=== PATIENT | female | born 1950 | race Caucasian/White ===

== ENCOUNTER 2020-09-09 10:17 | Outpatient (REF) | payer MEDICARE, OTHER, SELFPAY ==
[2020-09-09 13:54] LABS: MANUAL DIFF FLAG NO
[2020-09-09 14:18] LABS: Basophils Percent Auto 0.4 % (0-2); Eosinophils Absolute Auto 0.1 X10*3/uL (0.0-0.4); Hematocrit 43.3 % (37-47); Hemoglobin 14.1 g/dl (12.0-16.0); Imm Gran Abs Auto 0.01 X10*3/uL (0.00-0.03); Imm Gran Pct Auto 0.1 % (0.0-0.4); Lymphocytes Absolute Auto 2.5 X10*3/uL (1.2-4.9); Lymphocytes Percent Auto 32.2 % (20-40); Mean Corpuscular HGB Conc 32.6 g/dl (31.0-35.0); Mean Corpuscular Hemoglobin 30.7 pg (27.0-33.0); Mean Corpuscular Volume 94.1 fL (80-98); Mean Platelet Volume 12.1 fL (9.4-12.3); Monocytes Absolute Auto 0.5 X10*3/uL (0.1-1.2); Neutrophils Absolute Auto 4.7 X10*3/uL (2.0-8.3); Neutrophils Percent Auto 60.3 % (45-73); Platelet Count 211 X10*3/uL (160-400); Red Cell Distribution Width 13.2 % (11.0-16.0); White Blood Count 7.8 X10*3/uL (4.8-10.8)
[2020-09-09 14:34] LABS: Anion Gap 14 (12-20); Blood Urea Nitrogen 15 mg/dL (9-16); Calcium 8.6 mg/dL (8.4-10.2); Carbon Dioxide 24 mmol/L (22-29); Chloride 108 mmol/L (96-108); Estimated Glomerular Filt Rate > 60; Glucose Random 82 mg/dL (60-115); Potassium 4.8 mmol/l (3.3-5.1); Sodium 141 mmol/L (135-145)
[2020-09-09 15:00] LABS: Free T4 (Free Thyroxine) 1.17 ng/dL (0.71-1.85); Thyroid Stimulating Hormone 2.64 uIU/mL (0.32-4.0); Vitamin D 25-OH Total 21.3 ng/mL (>30)
== END 2020-09-09 10:18 | disposition home or self-care (01) ==
LOC: HO.10HDL 10:17
PROVIDERS: Visit Provider Internal Medicine
DX: E03.9 Hypothyroidism, unspecified (principal); E55.9 Vitamin D deficiency, unspecified; K57.90 Diverticulosis of intestine, part unspecified, without perforation or abscess without bleeding
CPT/HCPCS: 36415; 80048; 82306; 84439; 84443; 85025

== ENCOUNTER 2021-01-06 10:26 | Outpatient (REF) | payer MEDICARE, OTHER, SELFPAY ==
[2021-01-06 11:44] LABS: MANUAL DIFF FLAG NO
[2021-01-06 11:50] LABS: Basophils Percent Auto 0.4 % (0-2); Eosinophils Absolute Auto 0.1 X10*3/uL (0.0-0.4); Eosinophils Percent Auto 1.5 % (0-4); Hematocrit 43.4 % (37-47); Hemoglobin 14.3 g/dl (12.0-16.0); Imm Gran Abs Auto 0.03 X10*3/uL (0.00-0.03); Imm Gran Pct Auto 0.4 % (0.0-0.4); Lymphocytes Percent Auto 37.6 % (20-40); Mean Corpuscular HGB Conc 32.9 g/dl (31.0-35.0); Mean Corpuscular Hemoglobin 30.9 pg (27.0-33.0); Mean Corpuscular Volume 93.7 fL (80-98); Mean Platelet Volume 11.8 fL (9.4-12.3); Monocytes Absolute Auto 0.5 X10*3/uL (0.1-1.2); Monocytes Percent Auto 6.2 % (2-11); Neutrophils Absolute Auto 4.3 X10*3/uL (2.0-8.3); Neutrophils Percent Auto 53.9 % (45-73); Platelet Count 243 X10*3/uL (160-400); Red Blood Count 4.63 X10*6/uL (4.20-5.50); Red Cell Distribution Width 13.4 % (11.0-16.0); White Blood Count 7.9 X10*3/uL (4.8-10.8)
[2021-01-06 12:13] LABS: Anion Gap 14 (12-20); Blood Urea Nitrogen 16 mg/dL (9-16); Calcium 9.1 mg/dL (8.4-10.2); Carbon Dioxide 24 mmol/L (22-29); Chloride 107 mmol/L (96-108); Estimated Glomerular Filt Rate > 60; Glucose Random 91 mg/dL (60-115); Potassium 4.9 mmol/L (3.3-5.1); Sodium 140 mmol/L (135-145)
[2021-01-06 12:38] LABS: Thyroid Stimulating Hormone 2.76 uIU/mL (0.32-4.0); Vitamin D 25-OH Total 21.1 ng/mL (>30)
== END 2021-01-06 10:27 | disposition home or self-care (01) ==
LOC: HO.LAB 10:26
PROVIDERS: PCP Internal Medicine; Visit Provider Internal Medicine
DX: E03.9 Hypothyroidism, unspecified (principal); E55.9 Vitamin D deficiency, unspecified
CPT/HCPCS: 36415; 80048; 82306; 84439; 84443; 85025

== ENCOUNTER 2021-02-07 09:43 | Outpatient (REF) | payer MEDICARE, OTHER, SELFPAY ==
[2021-02-07 10:52] LABS: MANUAL DIFF FLAG NO
[2021-02-07 11:11] LABS: Basophils Percent Auto 0.4 % (0-2); Eosinophils Absolute Auto 0.1 X10*3/uL (0.0-0.4); Eosinophils Percent Auto 1.2 % (0-4); Hematocrit 42.6 % (37-47); Hemoglobin 13.7 g/dl (12.0-16.0); Imm Gran Abs Auto 0.02 X10*3/uL (0.00-0.03); Imm Gran Pct Auto 0.2 % (0.0-0.4); Lymphocytes Absolute Auto 2.1 X10*3/uL (1.2-4.9); Lymphocytes Percent Auto 25.1 % (20-40); Mean Corpuscular HGB Conc 32.2 g/dl (31.0-35.0); Mean Corpuscular Hemoglobin 30.6 pg (27.0-33.0); Mean Corpuscular Volume 95.1 fL (80-98); Mean Platelet Volume 12.1 fL (9.4-12.3); Monocytes Absolute Auto 0.5 X10*3/uL (0.1-1.2); Monocytes Percent Auto 5.9 % (2-11); Neutrophils Absolute Auto 5.6 X10*3/uL (2.0-8.3); Neutrophils Percent Auto 67.2 % (45-73); Platelet Count 235 X10*3/uL (160-400); Red Blood Count 4.48 X10*6/uL (4.20-5.50); Red Cell Distribution Width 13.5 % (11.0-16.0); White Blood Count 8.3 X10*3/uL (4.8-10.8)
[2021-02-07 11:26] LABS: Alanine Aminotransferase 8 U/L (0-31); Albumin Level 4.1 g/dL (3.5-5.0); Alkaline Phosphatase 78 U/L (39-117); Anion Gap 10 (12-20); Aspartate Amino Transferase 14 U/L (5-31); Bilirubin Total 0.4 mg/dL (0.0-1.0); Blood Urea Nitrogen 19 mg/dL (9-16); C Reactive Protein 0.51 mg/dL (< or = 0.50); Calcium 9.2 mg/dL (8.4-10.2); Carbon Dioxide 26 mmol/L (22-29); Chloride 110 mmol/L (96-108); Estimated Glomerular Filt Rate > 60; Glucose Random 90 mg/dL (60-115); Sodium 141 mmol/L (135-145); Total Protein 6.7 g/dL (6.5-8.0)
== END 2021-02-07 09:44 | disposition home or self-care (01) ==
LOC: HO.LAB 09:43
PROVIDERS: PCP Internal Medicine; Visit Provider Internal Medicine
DX: I10 Essential (primary) hypertension (principal); T88.1XXA Other complications following immunization, not elsewhere classified, initial encounter
CPT/HCPCS: 36415; 80053; 85025; 86140

== ENCOUNTER 2021-03-07 08:42 | Outpatient (REF) | payer MEDICARE, OTHER, SELFPAY ==
--- NOTE | ~2021-03-07 | XR_ITS ---
EXAMINATION: XR PELVIS CLINICAL INFORMATION: Pain. COMPARISON: None TECHNIQUE: AP view of the pelvis. FINDINGS: There is normal symmetry of bilateral hip joints and SI joints. No gross bony abnormality involving the pelvic bones or the sacrum. No acute fracture, dislocation or lytic process seen. The soft tissues are normal. XR/XR pelvis 1-2V IMPRESSION: Unremarkable AP pelvis exam.
== END 2021-03-07 08:43 | disposition home or self-care (01) ==
LOC: HO.HOSX 08:42
PROVIDERS: Visit Provider Orthopaedic Surgery
DX: M54.16 Radiculopathy, lumbar region (principal)
CPT/HCPCS: 72170; 99202

== ENCOUNTER 2021-03-10 15:29 | Outpatient (REF) | payer MEDICARE, OTHER, SELFPAY ==
[2021-03-11 03:41] LABS: SARS COV2 IgG Negative (Negative)
== END 2021-03-10 15:30 | disposition home or self-care (01) ==
LOC: HO.LAB 15:29
PROVIDERS: PCP Internal Medicine; Visit Provider Otolaryngology
DX: Z01.84 Encounter for antibody response examination (principal)
CPT/HCPCS: 36415; 86769

== ENCOUNTER 2021-08-12 15:29 | Outpatient (REF) | payer MEDICARE, OTHER, SELFPAY ==
[2021-08-12 16:16] LABS: Influenza A PCR NEGATIVE (Negative); Influenza B PCR NEGATIVE (Negative); Resp Syncy Virus RNA Qual PCR NEGATIVE (Negative); SARS COV2 PCR INHOUSE NEGATIVE (Negative)
== END 2021-08-12 15:30 | disposition home or self-care (01) ==
LOC: HO.LNP 15:29
PROVIDERS: Visit Provider Physician Assistant Medical
DX: Z20.822 Contact with and (suspected) exposure to COVID-19 (principal); J06.9 Acute upper respiratory infection, unspecified
CPT/HCPCS: 0241U

== ENCOUNTER 2022-04-11 12:15 | Outpatient (REF) | payer MEDICARE, OTHER, SELFPAY ==
[2022-04-11 13:46] LABS: MANUAL DIFF FLAG NO
[2022-04-11 13:49] LABS: Basophils Percent Auto 0.5 % (0-2); Eosinophils Absolute Auto 0.2 X10*3/uL (0.0-0.4); Hematocrit 44.5 % (37.0-47.0); Hemoglobin 14.8 g/dl (12.0-16.0); Imm Gran Abs Auto 0.01 X10*3/uL (0.00-0.03); Imm Gran Pct Auto 0.1 % (0.0-0.4); Lymphocytes Absolute Auto 2.7 X10*3/uL (1.2-4.9); Lymphocytes Percent Auto 35.4 % (20-40); Mean Corpuscular HGB Conc 33.3 g/dl (31.0-35.0); Mean Corpuscular Hemoglobin 30.8 pg (27.0-33.0); Mean Corpuscular Volume 92.7 fL (80.0-98.0); Mean Platelet Volume 11.8 fL (9.4-12.3); Monocytes Absolute Auto 0.5 X10*3/uL (0.1-1.2); Monocytes Percent Auto 6.3 % (2-11); Neutrophils Absolute Auto 4.2 x10*3/uL (2.0-8.3); Neutrophils Percent Auto 55.7 % (45-73); Platelet Count 218 X10*3/uL (160-400); Red Cell Distribution Width 13.4 % (11.0-16.0); White Blood Count 7.5 X10*3/uL (4.8-10.8)
[2022-04-11 14:24] LABS: Alanine Aminotransferase 8 U/L (0-31); Albumin Level 4.2 g/dL (3.5-5.0); Alkaline Phosphatase 86 U/L (39-117); Anion Gap 15 (12-20); Aspartate Amino Transferase 15 U/L (5-31); Bilirubin Total 0.3 mg/dL (0.0-1.0); Blood Urea Nitrogen 19 mg/dL (9-16); Calcium 9.5 mg/dL (8.4-10.2); Carbon Dioxide 25 mmol/L (22-29); Chloride 107 mmol/L (96-108); Cholesterol 262 mg/dL; Estimated Glomerular Filt Rate 60; Glucose Random 88 mg/dL (60-115); Potassium 4.9 mmol/L (3.3-5.1); Sodium 142 mmol/L (135-145); Total Protein 6.9 g/dL (6.5-8.0)
[2022-04-11 14:46] LABS: Thyroid Stimulating Hormone 3.59 uIU/mL (0.32-4.0); Vitamin D 25-OH Total 19.7 ng/mL (>30)
== END 2022-04-11 12:16 | disposition home or self-care (01) ==
LOC: HO.10HDL 12:15
PROVIDERS: Visit Provider Internal Medicine
DX: E55.9 Vitamin D deficiency, unspecified (principal); J44.9 Chronic obstructive pulmonary disease, unspecified
CPT/HCPCS: 36415; 80053; 82306; 82465; 84439; 84443; 85025

== ENCOUNTER 2022-10-21 07:03 | Outpatient (REF) | payer MEDICARE, OTHER, SELFPAY ==
[2022-10-21 08:56] LABS: Alanine Aminotransferase 10 U/L (0-31); Albumin Level 3.9 g/dL (3.5-5.0); Alkaline Phosphatase 91 U/L (39-117); Anion Gap 13 (12-20); Aspartate Amino Transferase 15 U/L (5-31); Bilirubin Total 0.4 mg/dL (0.0-1.0); Blood Urea Nitrogen 14 mg/dL (9-16); Calcium 8.7 mg/dL (8.4-10.2); Carbon Dioxide 26 mmol/L (22-29); Chloride 106 mmol/L (96-108); Cholesterol 241 mg/dL; Estimated Glomerular Filt Rate > 60; Glucose Random 89 mg/dL (60-115); HDL Cholesterol 47 mg/dL; LDL Cholesterol Calculated 162 mg/dl; Potassium 4.6 mmol/L (3.3-5.1); Sodium 140 mmol/L (135-145); Total Protein 6.5 g/dL (6.5-8.0); Triglycerides 163 mg/dL
[2022-10-21 09:16] LABS: Thyroid Stimulating Hormone 4.51 uIU/mL (0.32-4.0)
[2022-10-21 09:43] LABS: T4 Thyroxine 8.8 ug/dL (4.5-12.0); Vitamin D 25-OH Total 22.4 ng/mL (>30)
== END 2022-10-21 07:04 | disposition home or self-care (01) ==
LOC: HO.LAB 07:03
PROVIDERS: PCP Internal Medicine; Visit Provider Internal Medicine
DX: E03.9 Hypothyroidism, unspecified (principal); E78.00 Pure hypercholesterolemia, unspecified; E55.9 Vitamin D deficiency, unspecified
CPT/HCPCS: 36415; 80053; 80061; 82306; 84436; 84443

== ENCOUNTER 2023-04-05 15:47 | Outpatient (AMB) | payer MEDICARE, OTHER, SELFPAY ==
--- NOTE | 2023-04-05 15:57 | MHC.OFFVIS ---
Intake Vital Signs 04/05/23 15:59 Weight 226 lb 13.69 oz BP 130/82 Blood Pressure Location Lt brachial Position Sitting Pulse 49 L Pulse Source Pulse Oximeter Intake Visit Reasons: Hypothyroidism Intake Note: New patient present today for Hypothyroidism office visit. Utility Agent Required: No Accompanied by: Self / Same As Patient Allergies Penicillins [PENICILLINS] Allergy (Severe, Verified 04/05/23 16:00) RASH Iodinated Contrast Media [IV Dye, Iodine Containing] Allergy (Intermediate, Verified 04/05/23 16:00) FLUSHING morphine [MORPHINE] Allergy (Intermediate, Verified 04/05/23 16:00) SHAKING, shaking, aggitation penicillin V Allergy (Unknown, Verified 04/05/23 16:00) rash Medication List - Last Reconciled 04/05/23 by Barrie Menchaca MD levothyroxine (Synthroid) 88 mcg PO DAILY HPI HPI Comments History of Present Illness Details This 72-year-old white female previously followed by myself for management of hypothyroidism. Patient is currently on Synthroid 88 mcg .M-F and 100 ug Sun and Sunday. She has been on this dose for yrs. Has difficulty losing wt. [facility] Medical History (Updated 04/05/23 @ 16:08 by Barrie Menchaca MD) Hypothyroid Surgical History (Updated 04/05/23 @ 16:07 by Era Canales) History of hysterectomy Social History Current occupational status: retired Current occupation: rt hand/ Physical Exam Vital Signs: Last Vital Signs Pulse 49 L 04/05/23 15:59 BP 130/82 04/05/23 15:59 Const Other: Thyroid gland is decreased in size weighs by 5 g. There are no thyroid nodules palpated Assessment & Plan Assessment & Plan (1) Hypothyroid: Code(s): E03.9 - Hypothyroidism, unspecified Plan: This 72-year-old white female with a history of hypothyroidism currently be replaced on stop 88 mcg Synthroid. She appears to be clinically euthyroid. Plan is to check a TSH and free T4 and adjust levothyroxine accordingly Orders: Orders Free T4 (Free Thyroxine) Today E03.9 - Hypothyroidism, unspecified Thyroid Stimulating Hormone Today E03.9 - Hypothyroidism, unspecified Coding Level of Care Code Est Pt Level 3 (57829) Diagnoses Hypothyroid E03.9
[2023-04-05 15:59] VITALS: BP 130/82; PULSE 49
== END 2023-04-05 16:30 | disposition home or self-care (01) ==
PROVIDERS: PCP Internal Medicine; Visit Provider Internal Medicine Endocrinology, Diabetes & Metabolism
DX: E03.9 Hypothyroidism, unspecified (principal)
CPT/HCPCS: 99213

== ENCOUNTER → 2023-04-05 15:47 | Outpatient (BNVA) | payer MEDICARE, OTHER, SELFPAY | PROVIDERS: PCP Internal Medicine; Visit Provider Internal Medicine Endocrinology, Diabetes & Metabolism | DX: E03.9 Hypothyroidism, unspecified (principal) | CPT/HCPCS: 99212 ==

== ENCOUNTER 2023-04-13 07:51 | Outpatient (REF) | payer MEDICARE, OTHER, SELFPAY ==
[2023-04-13 10:49] LABS: Free T4 (Free Thyroxine) 1.07 ng/dL (0.71-1.85); Thyroid Stimulating Hormone 5.56 uIU/mL (0.32-4.0)
== END 2023-04-13 07:52 | disposition home or self-care (01) ==
LOC: HO.LAB 07:51
PROVIDERS: PCP Internal Medicine; Visit Provider Internal Medicine Endocrinology, Diabetes & Metabolism
DX: E03.9 Hypothyroidism, unspecified (principal)
CPT/HCPCS: 36415; 84439; 84443

== ENCOUNTER 2023-10-01 14:03 | Outpatient (REF) | payer MEDICARE, OTHER, SELFPAY ==
[2023-10-01 15:46] LABS: Free T4 (Free Thyroxine) 1.04 ng/dL (0.71-1.85); Thyroid Stimulating Hormone 3.06 uIU/mL (0.32-4.0)
== END 2023-10-01 14:04 | disposition home or self-care (01) ==
LOC: HO.LAB 14:03
PROVIDERS: PCP Internal Medicine; Visit Provider Internal Medicine Endocrinology, Diabetes & Metabolism
DX: E03.9 Hypothyroidism, unspecified (principal)
CPT/HCPCS: 36415; 84439; 84443

== ENCOUNTER 2023-10-04 14:50 | Outpatient (AMB) | payer MEDICARE, OTHER, SELFPAY ==
--- NOTE | 2023-10-04 15:03 | MHC.OFFVIS ---
Intake Vital Signs 10/04/23 15:06 Height 5 ft 6 in Weight 226 lb 3.108 oz BMI 36.5 BP 102/80 Blood Pressure Location Lt brachial Position Sitting Pulse 72 Pulse Source Pulse Oximeter Intake Visit Reasons: f/u hypothyroidism postablative-confirmed Intake Note: Patient presents today for Hypothyroidism Postablative follow up. Sugar Laboratory Assistant Required: No Accompanied by: Self / Same As Patient Allergies Penicillins [PENICILLINS] Allergy (Severe, Verified 10/04/23 15:10) RASH Iodinated Contrast Media [IV Dye, Iodine Containing] Allergy (Intermediate, Verified 10/04/23 15:10) FLUSHING morphine [MORPHINE] Allergy (Intermediate, Verified 10/04/23 15:10) SHAKING, shaking, aggitation penicillin V Allergy (Unknown, Verified 10/04/23 15:10) rash Medication List - Last Reconciled 10/04/23 by Barrie Menchaca MD levothyroxine 100 mcg PO DAILY Synthroid (levothyroxine) 88 mcg PO DAILY NS HPI HPI Comments History of Present Illness Details This 73-year-old white female previously followed by myself for management of hypothyroidism. Patient is currently on Synthroid 88 mcg .- and 100 ug Sun and Sunday. She has been on this dose for yrs. Has difficulty losing wt. [facility] Medical History (Updated 04/05/23 @ 16:08 by Barrie Menchaca MD) Hypothyroid Surgical History History of hysterectomy Social History Current occupational status: retired Current occupation: rt hand/ Physical Exam Vital Signs: Last Vital Signs Pulse 72 10/04/23 15:06 BP 102/80 10/04/23 15:06 BMI result Body Mass Index 36.5 Const Other: Thyroid gland is decreased in size weighs by 5 g. There are no thyroid nodules palpated Assessment & Plan Assessment & Plan (1) Hypothyroid: Code(s): E03.9 - Hypothyroidism, unspecified Plan: This 72-year-old white female with a history of hypothyroidism currently be replaced on 88 mcg Synthroid Sunday to Sunday and 100 mcg on Sunday and Sunday. She appears to be clinically and biochemically euthyroid. Plan is to do the current management Coding Level of Care Code Est Pt Level 3 (35823) Diagnoses Hypothyroid E03.9
[2023-10-04 15:06] VITALS: BP 102/80; PULSE 72; BMI 36.5
== END 2023-10-04 15:42 | disposition home or self-care (01) ==
PROVIDERS: PCP Internal Medicine; Visit Provider Internal Medicine Endocrinology, Diabetes & Metabolism
DX: E03.9 Hypothyroidism, unspecified (principal)
CPT/HCPCS: 99213

== ENCOUNTER → 2023-10-04 14:50 | Outpatient (BNVA) | payer MEDICARE, OTHER, SELFPAY | PROVIDERS: PCP Internal Medicine; Visit Provider Internal Medicine Endocrinology, Diabetes & Metabolism | DX: E03.9 Hypothyroidism, unspecified (principal) | CPT/HCPCS: 99212 ==

== ENCOUNTER 2023-11-28 09:12 | Outpatient (REF) | payer MEDICARE, OTHER, SELFPAY ==
[2023-11-28 09:31] LABS: MANUAL DIFF FLAG NO
[2023-11-28 10:16] LABS: Basophils Percent Auto 0.6 % (0-2); Eosinophils Absolute Auto 0.1 X10*3/uL (0.0-0.4); Eosinophils Percent Auto 2.1 % (0-4); Hematocrit 38.4 % (37.0-47.0); Hemoglobin 12.1 g/dl (12.0-16.0); Imm Gran Abs Auto 0.02 X10*3/uL (0.00-0.03); Imm Gran Pct Auto 0.3 % (0.0-0.4); Lymphocytes Absolute Auto 2.5 X10*3/uL (1.2-4.9); Lymphocytes Percent Auto 37.4 % (20-40); Mean Corpuscular HGB Conc 31.5 g/dl (31.0-35.0); Mean Corpuscular Volume 85.7 fL (80.0-98.0); Mean Platelet Volume 11.5 fL (9.4-12.3); Monocytes Absolute Auto 0.5 X10*3/uL (0.1-1.2); Neutrophils Absolute Auto 3.5 x10*3/uL (2.0-8.3); Neutrophils Percent Auto 52.6 % (45-73); Platelet Count 290 X10*3/uL (160-400); Red Blood Count 4.48 X10*6/uL (4.20-5.50); Red Cell Distribution Width 15.7 % (11.0-16.0); White Blood Count 6.6 X10*3/uL (4.8-10.8)
[2023-11-28 11:35] LABS: Alanine Aminotransferase 9 U/L (0-31); Albumin Level 3.9 g/dL (3.5-5.0); Alkaline Phosphatase 94 U/L (39-117); Anion Gap 11 (12-20); Aspartate Amino Transferase 15 U/L (5-31); Bilirubin Total 0.3 mg/dL (0.0-1.0); Blood Urea Nitrogen 14 mg/dL (9-16); Calcium 9.2 mg/dL (8.4-10.2); Carbon Dioxide 26 mmol/L (22-29); Chloride 108 mmol/L (96-108); Cholesterol 233 mg/dL (<200); Estimated Glomerular Filt Rate > 60; Glucose Fasting 99 mg/dL (60-99); HDL Cholesterol 50 mg/dL (>40); LDL Cholesterol Calculated 161 mg/dL (<100); Potassium 4.5 mmol/L (3.3-5.1); Sodium 140 mmol/L (135-145); Total Protein 7.2 g/dL (6.5-8.0); Triglycerides 112 mg/dL (<150)
[2023-11-28 11:36] LABS: Vitamin D 25-OH Total 26.8 ng/mL (>30)
== END 2023-11-28 09:13 | disposition home or self-care (01) ==
LOC: HO.LAB 09:12
PROVIDERS: PCP Internal Medicine; Visit Provider Internal Medicine
DX: J44.9 Chronic obstructive pulmonary disease, unspecified (principal); E78.00 Pure hypercholesterolemia, unspecified; E55.9 Vitamin D deficiency, unspecified
CPT/HCPCS: 36415; 80053; 80061; 82306; 85025

== ENCOUNTER 2024-05-31 08:22 | Outpatient (REF) | payer MEDICARE, OTHER, SELFPAY ==
[2024-05-31 08:42] LABS: MANUAL DIFF FLAG NO
[2024-05-31 09:14] LABS: Basophils Percent Auto 0.5 % (0-2); Eosinophils Absolute Auto 0.1 X10*3/uL (0.0-0.4); Eosinophils Percent Auto 2.1 % (0-4); Hematocrit 40.4 % (37.0-47.0); Hemoglobin 12.7 g/dl (12.0-16.0); Imm Gran Abs Auto 0.02 X10*3/uL (0.00-0.03); Imm Gran Pct Auto 0.3 % (0.0-0.4); Lymphocytes Absolute Auto 1.8 X10*3/uL (1.2-4.9); Lymphocytes Percent Auto 26.6 % (20-40); Mean Corpuscular HGB Conc 31.4 g/dl (31.0-35.0); Mean Corpuscular Hemoglobin 26.7 pg (27.0-33.0); Mean Corpuscular Volume 85.1 fL (80.0-98.0); Mean Platelet Volume 11.1 fL (9.4-12.3); Monocytes Absolute Auto 0.5 X10*3/uL (0.1-1.2); Monocytes Percent Auto 7.5 % (2-11); Neutrophils Absolute Auto 4.2 x10*3/uL (2.0-8.3); Platelet Count 299 X10*3/uL (160-400); Red Blood Count 4.75 X10*6/uL (4.20-5.50); Red Cell Distribution Width 16.7 % (11.0-16.0); White Blood Count 6.7 X10*3/uL (4.8-10.8)
[2024-05-31 10:05] LABS: Alanine Aminotransferase 9 U/L (0-31); Alkaline Phosphatase 92 U/L (39-117); Anion Gap 13 (12-20); Aspartate Amino Transferase 14 U/L (5-31); Bilirubin Total 0.3 mg/dL (0.0-1.0); Blood Urea Nitrogen 20 mg/dL (9-16); Carbon Dioxide 26 mmol/L (22-29); Chloride 106 mmol/L (96-108); Cholesterol 223 mg/dL (<200); Estimated Glomerular Filt Rate > 60; Glucose Fasting 103 mg/dL (60-99); HDL Cholesterol 43 mg/dL (>40); LDL Cholesterol Calculated 147 mg/dL (<100); Potassium 4.5 mmol/L (3.3-5.1); Sodium 140 mmol/L (135-145); Triglycerides 165 mg/dL (<150)
[2024-05-31 10:21] LABS: Free T4 (Free Thyroxine) 1.22 ng/dL (0.71-1.85); Thyroid Stimulating Hormone 4.63 uIU/mL (0.32-4.0); Vitamin D 25-OH Total 27.5 ng/mL (>30)
== END 2024-05-31 08:23 | disposition home or self-care (01) ==
LOC: HO.LAB 08:22
PROVIDERS: PCP Internal Medicine; Visit Provider Internal Medicine
DX: E03.9 Hypothyroidism, unspecified (principal); E78.00 Pure hypercholesterolemia, unspecified; E55.9 Vitamin D deficiency, unspecified
CPT/HCPCS: 36415; 80053; 80061; 82306; 84439; 84443; 85025

== ENCOUNTER 2024-11-27 09:49 | Outpatient (AMB) | payer MEDICARE, OTHER, SELFPAY ==
[2024-11-27 10:11] VITALS: BP 128/70; PULSE 71; TEMP 36.4; O2SAT 99; BMI 38.4
--- NOTE | 2024-11-27 10:11 | MHC.PC.OV ---
Vital Signs 11/27/24 10:11 Height 5 ft 4 in Weight 224 lb BMI 38.4 BP 128/70 Blood Pressure Location Rt brachial Position Sitting Pulse 71 Pulse Source Pulse Oximeter Temp 97.5 F Temp Source Axillary Pulse Oximetry (%) 99 Oxygen Delivery Method Room Air Intake Visit Reasons: Routine - see comments Health Safety Coordinator Required: No Accompanied by: Son Allergies Penicillins [PENICILLINS] Allergy (Severe, Verified 11/27/24 10:12) RASH Iodinated Contrast Media [IV Dye, Iodine Containing] Allergy (Intermediate, Verified 11/27/24 10:12) FLUSHING morphine [MORPHINE] Allergy (Intermediate, Verified 11/27/24 10:12) SHAKING, shaking, aggitation penicillin V Allergy (Unknown, Verified 11/27/24 10:12) rash Tobacco use date assessed: 11/27/24 Fall risk assessment: No Falls in past year Last assessed Fall Risk: 11/27/24 Dental Screening Dental Screen Date: 11/27/24 Did you have a dental visit in the last 12 months?: No Did you have a dental problem in the last 6 months where you did not have access to dental care?: No HPI HPI Comments History of Present Illness Details This 74-year-old white female with a past medical history of hypothyroid, hyperlipidemia, COPD, tobacco use presenting for follow up. Last seen by PCP in May Hyperlipidemia: Difficulty losing weight despite months of diet and exercise. Hypothyroid: On levothyroxine. Would like to switch to 88mcg daily. Intolerant of generic. History of thyroid surgery and pharmacologic ablation LDCT: UTD Colonoscopy: Mammo: UTD. Follows with search engine marketing manager Dr Noemí MCINTOSH CONSTITUTIONAL: Denies weight loss, fever and chills. HEENT: Denies changes in vision and hearing. RESPIRATORY: Denies SOB and cough. CV: Denies palpitations and CP GI: Denies abdominal pain, nausea, vomiting and diarrhea. : Denies dysuria and urinary frequency. MSK: Denies new myalgia and joint pain. SKIN: Denies rash and pruritus. NEUROLOGICAL: Denies headache PSYCHIATRIC: Denies recent changes in mood. PHYSICAL EXAM: GENERAL: Alert and oriented x 3. NAD EYES: EOMI. Anicteric. HENT: Moist mucous membranes. No scleral icterus. No cervical lymphadenopathy. LUNGS: Clear to auscultation bilaterally. CARDIOVASCULAR: Regular rate and rhythm. No murmur. No JVD. ABDOMEN: Soft, non-tender +bs EXTREMITIES: No edema. Non-tender. SKIN: No rashes or lesions. Warm. NEUROLOGIC: No focal neurological deficits. CN II-XII grossly intact PSYCHIATRIC: Cooperative. Appropriate mood and affect [facility] Medical History (Updated 11/28/24 @ 09:05 by Jackeline Willoughby MD) Hypothyroid Obesity Nicotine dependence, cigarettes, uncomplicated Surgical History History of colonoscopy (~04/06/15) History of cholecystectomy (~1991) History of appendectomy (~1997) History of hysterectomy (~1997) Family History Mother No problems noted. Father No problems noted. Social History Housing: House Patient Tobacco Use Status: Former Tobacco user e-Cigarette/Vaping Use: Former Use service: No Current occupational status: retired Current occupation: rt hand/ Cognitive needs: No Hearing needs: No Vision needs: Yes (reading) Questionnaire PHQ-9 Over the last 2 weeks, how often have you been bothered by any of the following problems? 1. Little interest or pleasure in doing things: not at all 2. Feeling down, depressed, or hopeless: not at all 3. Trouble falling or staying asleep, or sleeping too much: not at all 4. Feeling tired or having little energy: not at all 5. Poor appetite or overeating: not at all 6. Feeling bad about yourself - or that you are a failure or have let yourself or your family down: not at all 7. Trouble concentrating on things, such as reading the newspaper or watching television: not at all 8. Moving or speaking so slowly that other people could have noticed. Or the opposite - being so fidgety or restless that you have been moving around a lot more than usual: not at all 9. Thoughts that you would be better off or of hurting yourself in some way: not at all Total score: 0 Depression Screening Interpretation: Negative Depression Screening Done: Yes 30160 - PHQ-9 Billing: Yes Source: Developed by Drs. Barrie Lazar, Kaitlin Villela, Emre Espinosa and colleagues, with an educational paulino from [employer]. Thrive Questionnaire Date Thrive assessed: 11/27/24 I am a: Patient Within the past 12 months, did the food you bought not last and you didn't have the money to get more?: Never true Within the past 12 months, did you worry whether your food would run out before you got money to buy more?: Never true Do you have trouble paying for medicines?: No Do you have trouble getting transportation to medical appointments?: No Do you have trouble paying your heating and electricity bill?: No Do you have trouble taking care of your child, family member or friend?: No Do you have trouble with day-to-day activities such as bathing, preparing meals, shopping, managing finances, etc.?: No Are you currently unemployed and looking for a job?: No Are you interested in more education?: No THRIVE Score: 0 AUDIT C Alcohol Use Questionnaire (AUDIT-C) 1. How often do you have a drink containing alcohol?: Never 3. How often do you have six or more drinks on one occasion?: Never Total Score: 0 RADHA-7 AMB Questionnaire RADHA-7 Date RADHA - 7 assessed: 11/27/24 Feeling nervous, anxious, or on edge: 0 = Not at all Not being able to stop or control worryin = Not at all Worrying too much about different things: 0 = Not at all Trouble relaxin = Not at all Being so restless that it is hard to sit still: 0 = Not at all Becoming easily annoyed or irritable: 0 = Not at all Feeling afraid as if something awful might happen: 0 = Not at all Total RADHA-7 score (0-4 normal; 5-9 mild; 10-14 moderate; 15-21 severe): 0 Source: Developed by Drs. Barrie Lazar, Emre Mortensen and colleagues, with an educational paulino from [employer]. Physical exam (Primary Care) Vital Signs: Last Vital Signs Temp 97.5 F 11/27/24 10:11 Pulse 71 11/27/24 10:11 BP 128/70 11/27/24 10:11 Pulse Ox 99 11/27/24 10:11 Oxygen Delivery Method Room Air 11/27/24 10:11 BMI result Body Mass Index 38.4 Tobacco/Smoking Status: Tobacco use Status Tobacco use date assessed 11/27/24 11/27/24 10:13 Patient Tobacco Use Status Former Tobacco user 11/27/24 10:30 e-Cigarette/Vaping Use Former Use 11/27/24 10:30 PHQ-9: PHQ-9 Score PHQ-9: Total score 0 11/27/24 10:30 Depression Screening Interpretation: Negative Thrive Assessment: Date of Thrive Assessment Date Thrive assessed 11/27/24 11/27/24 10:13 Coding Level of Care Code New Pt Level 4 (16196) Diagnoses Hypothyroidism, unspecified type E03.9 Hypothyroidism type: unspecified Screening for hyperlipidemia Z13.220 Class 2 severe obesity with serious comorbidity and body mass index (BMI) of 38.0 to 38.9 in adult, unspecified obesity type E66.812; E66.01; Z68.38 Obesity classification: adult class 2 (BMI 35 - 39.9) Serious obesity comorbidity presence: with serious comorbidity Obesity type: unspecified obesity type Body mass index: BMI 38.0-38.9 Lumbar radiculopathy M54.16 Additional Codes PHQ-9 - 28761 - PHQ-9 Billing: Yes ([id number]) Assessment & Plan Assessment & Plan (1) Hypothyroid: Code(s): E03.9 - Hypothyroidism, unspecified Category: Medical Qualifiers: Hypothyroidism type: unspecified Qualified Code(s): E03.9 - Hypothyroidism, unspecified (2) Screening for hyperlipidemia: Code(s): Z13.220 - Encounter for screening for lipoid disorders Category: Medical (3) Obesity: Code(s): E66.9 - Obesity, unspecified Category: Medical Qualifiers: Obesity classification: adult class 2 (BMI 35 - 39.9) Serious obesity comorbidity presence: with serious comorbidity Obesity type: unspecified obesity type Body mass index: BMI 38.0-38.9 Qualified Code(s): E66.812 - Obesity, class 2; E66.01 - Morbid (severe) obesity due to excess calories; Z68.38 - Body mass index [BMI] 38.0-38.9, adult (4) Lumbar radiculopathy: Code(s): M54.16 - Radiculopathy, lumbar region Category: Medical Plan 74 y/o to establish care past medical, surgical, social reviewed Medicaitons reconciled Lelvothyroxine to 88mcg daily. Recheck TSH in 3 months Trial GLP if covered to aid class 2 obesity Orders: Orders Lipid Panel Today E03.9 - Hypothyroidism, unspecified, Z13.220 - Encounter for screening for lipoid disorders, Z13.228 - Encounter for screening for other metabolic disorders Complete Blood Count Auto Diff Today E03.9 - Hypothyroidism, unspecified, Z13.220 - Encounter for screening for lipoid disorders, Z13.228 - Encounter for screening for other metabolic disorders TSH reflex Free T4 Today E03.9 - Hypothyroidism, unspecified, Z13.220 - Encounter for screening for lipoid disorders, Z13.228 - Encounter for screening for other metabolic disorders Comprehensive Met. Panel Today E03.9 - Hypothyroidism, unspecified, Z13.220 - Encounter for screening for lipoid disorders, Z13.228 - Encounter for screening for other metabolic disorders Referrals Cologuard Test Z12.11 - Encounter for screening for malignant neoplasm of colon, Z12.12 - Encounter for screening for malignant neoplasm of rectum Medications: New Synthroid (levothyroxine) Brand name only 88 mcg PO DAILY 90 tabs 3RF NS Zepbound (tirzepatide (weight loss)) for 4 weeks 2.5 mg (0.5 mL) subcut QWEEK 2 mL 0RF NS Discontinued levothyroxine Discontinued Reason: Doctor's Order 100 mcg PO DAILY 90 tabs 1RF
--- OUTSIDE RECORDS SUMMARY | 2024-11-27 11:22 | XMS_ITS | Clinical Summary ---
Author Organization [facility] Address [address] [place] [address] Phone Care Team Providers Care Airplane Cabin Attendant Name Role Phone Unavailable Primary Care Provider Unavailabl e Social History Tobacco Use Types Packs/Day Years Used Date Smoking Tobacco: Never Assessed Comments Unknown Sex and Gender Information Value Date Recorded Sex Assigned at Not on file Legal Sex Female 11:55 AM EST Gender Identity Not on file Sexual Orientation Not on file Plan of Treatment Health Maintenance Due Date Last Done Comments DTaP,Tdap,and Td Vaccines (1 - Tdap) 1970 Pneumococcal Vaccine: 50+ Years (1 of 1 - PCV) 2001 Zoster Vaccines (1 of 2) 2001 Colorectal Cancer Screening: Colonoscopy 07/11/2022 Depression Screening 07/11/2022 Falls Risk Assessment 07/11/2022 Hepatitis C Screening 07/11/2022 Osteoporosis Screening (Bone Density Screening) 07/11/2022 Social Influencers of Health Screening 07/11/2022 COVID-19 Vaccine ( season) 2024 Influenza Vaccine (Season Ended) 2025 RSV Immunization Adult Patients (1 - 1-dose 75+ series) 2026 Breast Cancer Screening 06/10/2026 06/10/20 24, 09/23/2021, 09/13/2020, Additional history exists HIB Vaccines Aged Out No longer eligi ble based on patient's age to complete this topic HPV Vaccines Aged Out No longer eligi ble based on patient's age to complete this topic Hepatitis A Vaccines Aged Out No long er eligible based on patient's age to complete this topic Hepatitis B Vaccines Aged Out No long er eligible based on patient's age to complete this topic IPV Vaccines Aged Out No longer eligi ble based on patient's age to complete this topic MMR Vaccines Aged Out No longer eligi ble based on patient's age to complete this topic Meningococcal ACWY Vaccine Aged Out N o longer eligible based on patient's age to complete this topic Meningococcal B Vaccine Aged Out No l onger eligible based on patient's age to complete this topic RSV Immunization Patients Under 20 months Aged Out No longer eligible based on patient's age to complete this topic Varicella Vaccines Aged Out No longer eligible based on patient's age to complete this topic Procedures Procedure Name Priority Date/Time Associated Diagnosis Comments [facility] SCREENING DIGITAL Routine 06/10/2024 11:44 AM EDT Encounter for screening mammogram for malignant neoplasm of breast from Last 3 Months or Most Recently Relevant to Health Maintenance Results * [facility] SCREENING DIGITAL (06/10/2024 11:44 AM EDT) Anatomical Region Laterality Modality Mammography 06/10/2024 10:4 7 AM EDT Narrative 06/10/2024 11:44 AM EDT [facility] Diagnostic Imaging Department [address] [place] [address] Patient: ??SARI MCLAUGHLIN ?/Age/Sex: 1950 74 - F Unit#: ??[id number] ? Location/Status: ??SPDIMAM/REG CLI ? Mnemonic/Ordering Site: ??DIGSC/SPMAM Ordering Physician: ??BHUPINDER GARCIA MD Allison Screening Digital - 06/10/24 - 1122 Report Status:Signed HISTORY: The patient is a 74-year-old female presenting for routine screening mammography. FINDINGS: ??Full-field digital mammography of the breasts bilaterally consisting of tomosynthesis in MLO and CC projection is performed in the [employer] 2000-D unit. ??Computer aided detection utilizing the iCAD system was utilized. The breasts are again seen to be largely fatty-replaced (the breasts are almost entirely fatty, category A density as calculated with [employer] Volpara software), as also seen on prior studies most recently 09/23/2021 and most remotely 06/14/2016. ??A few benign calcifications are again seen in the left breast, stable in appearance. ??There is no suspicious cluster of microcalcifications, mass, or area of architectural distortion. There is no skin thickening or nipple retraction. IMPRESSION: No mammographic evidence of malignancy. A negative mammogram in the presence of a clinically suspicious palpable abnormality does not preclude the possibility of malignancy or alter the indications for biopsy. BIRADS Code Class 2: ??Benign Finding PQRI CPT II 3342F Code 52414, 35213 PQRI 225 CPT II 7025F Dictating Physician: ??JOE DONOHUE MD Electronically Signed by: ??JOE DONOHUE MD Dic Date/Time: ??06/10/24 1140 Sign date/Time: ??06/10/24 1144 Procedure Note Joe Donohue MD - 06/14/2024 [facility] Diagnostic Imaging Department [address] [place] [address] Patient: MCLAUGHLIN,SARILAYO Vásquez D.O.B./Age/Sex: 1950 - 74 - F Unit#: [id number] Location/Status: [facility] CLI Mnemonic/Ordering Site: [facility] Ordering Physician: BHUPINDER GARCIA MD Allison Screening Digital - 06/10/24 - 1122 Report Status:Signed HISTORY: The patient is a 74-year-old female presenting for routinescreening mammography. FINDINGS: Full-field digital mammography of the breasts bilaterallyconsisting of tomosynthesis in MLO and CC projection is performed in the [employer] 2000-D unit. Computer aided detection utilizing the iCAD system wasutilized. The breasts are again seen to be largely fatty-replaced (the breasts arealmost entirely fatty, category A density as calculated with [employer] Volparasoftware), as also seen on prior studies most recently 09/23/2021 and most remotely 06/14/2016. A few benign calcifications are again seen in the leftbreast, stable in appearance. There is no suspicious cluster ofmicrocalcifications, mass, or area of architectural distortion. There is no skin thickening ornipple retraction. IMPRESSION: No mammographic evidence of malignancy. A negative mammogram in the presence of a clinically suspicious palpable abnormality does not preclude the possibility of malignancy or alter the indications for biopsy. BIRADS Code Class 2: Benign Finding PQRI CPT II 3342F Code 41470, 87334 PQRI 225 CPT II 7025F Dictating Physician: JOE DONOHUE MD Electronically Signed by: JOE DONOHUE MD Dic Date/Time: 06/10/24 1140 Sign date/Time: 06/10/24 1144 us Bhupidner Garcia MD IMG BI PROCEDURES Final Resul t from Last 3 Months or Most Recently Relevant to Health Maintenance
== END 2024-11-27 10:55 | disposition home or self-care (01) ==
LOC: HO.HMCHD 09:49
PROVIDERS: PCP Internal Medicine; Visit Provider Internal Medicine
DX: E03.9 Hypothyroidism, unspecified (principal); Z13.220 Encounter for screening for lipoid disorders; E66.812 Obesity, class 2; E66.01 Morbid (severe) obesity due to excess calories; Z68.38 Body mass index [BMI] 38.0-38.9, adult; M54.16 Radiculopathy, lumbar region

== ENCOUNTER → 2024-11-27 09:49 | Outpatient (BNVA) | payer MEDICARE, OTHER, SELFPAY | PROVIDERS: PCP Internal Medicine; Visit Provider Internal Medicine | DX: E03.9 Hypothyroidism, unspecified (principal); E66.812 Obesity, class 2; E66.01 Morbid (severe) obesity due to excess calories; Z68.38 Body mass index [BMI] 38.0-38.9, adult; M54.16 Radiculopathy, lumbar region; E78.5 Hyperlipidemia, unspecified; Z79.899 Other long term (current) drug therapy | CPT/HCPCS: 96127; 99202 ==

== ENCOUNTER 2024-11-28 08:50 | Outpatient (REF) | payer MEDICARE, OTHER, SELFPAY ==
[2024-11-28 09:02] LABS: MANUAL DIFF FLAG NO
--- OUTSIDE RECORDS SUMMARY | 2024-11-28 09:14 | XMS_ITS | Clinical Summary ---
Author Organization [facility] Address [address] [place] [address] Phone Care Team Providers Care Embedded Software Test Engineer Name Role Phone Unavailable Primary Care Provider [...] Procedure Name Priority Date/Time Associated Diagnosis Comments [facility] SCREENING DIGITAL Routine 06/10/2024 11:44 AM EDT Encounter for screening mammogram for malignant neoplasm of breast from Last 3 Months or Most Recently Relevant to Health Maintenance Results * [facility] SCREENING DIGITAL (06/10/2024 11:44 AM EDT) Anatomical Region Laterality Modality Mammography 06/10/2024 10:4 7 AM EDT Narrative 06/10/2024 11:44 AM EDT [facility] Diagnostic Imaging Department [address] [place] [address] Patient: ??SARI MCLAUGHLIN ?/Age/Sex: 1950 74 - F Unit#: ??[id number] ? Location/Status: ??SPDIMAM/REG CLI ? Mnemonic/Ordering Site: ??DIGSC/SPMAM Ordering Physician: ??BHUPINDER GARCIA MD Allison Screening Digital - 06/10/24 - 1122 Report Status:Signed HISTORY: The patient is a 74-year-old female presenting for routine screening mammography. FINDINGS: ??Full-field digital mammography of the breasts bilaterally consisting of tomosynthesis in MLO and CC projection is performed in the [employer] 2000-D unit. ??Computer aided detection utilizing the iCAD system was utilized. The breasts are again seen to be largely fatty-replaced (the breasts are almost entirely fatty, category A density as calculated with [employer] Volpara software), as also seen on prior [...] ??Benign Finding PQRI CPT II 3342F Code 73775, 67257 PQRI 225 CPT II 7025F Dictating Physician: ??JOE DONOHUE MD Electronically Signed by: ??JOE DONOHUE MD Dic Date/Time: ??06/10/24 1140 Sign date/Time: ??06/10/24 1144 Procedure Note Joe Donohue MD - 06/14/2024 [facility] Diagnostic Imaging Department [address] [place] [address] Patient: MCLAUGHLIN,SARILAYO Vásquez D.O.B./Age/Sex: 1950 - 74 - F Unit#: [id number] Location/Status: [facility] CLI Mnemonic/Ordering Site: [facility] Ordering Physician: BHUPINDER GARCIA MD Allison Screening Digital - 06/10/24 - 1122 Report Status:Signed HISTORY: The patient is a 74-year-old female presenting for routinescreening mammography. FINDINGS: Full-field digital mammography of the breasts bilaterallyconsisting of tomosynthesis in MLO and CC projection is performed in the [employer] 2000-D unit. Computer aided detection utilizing the [...] Benign Finding PQRI CPT II 3342F Code 86914, 14163 PQRI 225 CPT II 7025F Dictating Physician: JOE DONOHUE MD Electronically Signed by: JOE DONOHUE MD Dic Date/Time: 06/10/24 1140 Sign date/Time: 06/10/24 1144 us Bhupinder Garcia MD IMG BI PROCEDURES Final Resul t from Last 3 Months or Most Recently Relevant to Health Maintenance
[2024-11-28 09:50] LABS: Basophils Percent Auto 0.5 % (0-2); Eosinophils Absolute Auto 0.1 X10*3/uL (0.0-0.4); Eosinophils Percent Auto 1.7 % (0-4); Hematocrit 35.8 % (37.0-47.0); Hemoglobin 11.2 g/dl (12.0-16.0); Imm Gran Abs Auto 0.01 X10*3/uL (0.00-0.03); Imm Gran Pct Auto 0.2 % (0.0-0.4); Lymphocytes Percent Auto 30.3 % (20-40); Mean Corpuscular HGB Conc 31.3 g/dl (31.0-35.0); Mean Corpuscular Hemoglobin 26.6 pg (27.0-33.0); Mean Platelet Volume 11.2 fL (9.4-12.3); Monocytes Absolute Auto 0.4 X10*3/uL (0.1-1.2); Monocytes Percent Auto 6.6 % (2-11); Neutrophils Percent Auto 60.7 % (45-73); Platelet Count 311 X10*3/uL (160-400); Red Blood Count 4.21 X10*6/uL (4.20-5.50); Red Cell Distribution Width 15.6 % (11.0-16.0); White Blood Count 6.6 X10*3/uL (4.8-10.8)
[2024-11-28 11:02] LABS: Alanine Aminotransferase < 6 U/L (0-31); Albumin Level 3.8 g/dL (3.5-5.0); Anion Gap 12 (12-20); Aspartate Amino Transferase 18 U/L (5-31); Bilirubin Total 0.3 mg/dL (0.0-1.0); Blood Urea Nitrogen 20 mg/dL (9-16); Calcium 8.8 mg/dL (8.4-10.2); Carbon Dioxide 24 mmol/L (22-29); Chloride 108 mmol/L (96-108); Cholesterol 221 mg/dL (<200); Estimated Glomerular Filt Rate > 60; Glucose Random 105 mg/dL (60-115); HDL Cholesterol 46 mg/dL (>40); LDL Cholesterol Calculated 149 mg/dL (<100); Potassium 4.5 mmol/L (3.3-5.1); Sodium 139 mmol/L (135-145); TSH reflex Free T4 3.89 uIU/mL (0.32-4.0); Total Protein 6.9 g/dL (6.5-8.0); Triglycerides 131 mg/dL (<150)
[2024-11-28 19:32] LABS: Alkaline Phosphatase 83 U/L (39-117)
== END 2024-11-28 08:51 | disposition home or self-care (01) ==
LOC: HO.LAB 08:50
PROVIDERS: PCP Internal Medicine; Visit Provider Internal Medicine
DX: E03.9 Hypothyroidism, unspecified (principal); Z13.228 Encounter for screening for other metabolic disorders; Z13.220 Encounter for screening for lipoid disorders
CPT/HCPCS: 36415; 80053; 80061; 84443; 85025

== ENCOUNTER 2025-03-05 11:32 | Outpatient (REF) | payer MEDICARE, OTHER, SELFPAY ==
--- OUTSIDE RECORDS SUMMARY | 2025-03-05 12:26 | XMS_ITS | Clinical Summary ---
Author Organization [facility] Address [address] [place] [address] Phone Care Team Providers Care Electrical Controls Engineer Name Role Phone Unavailable Primary Care [...] 2) 2001 Colorectal Cancer Screening: Colonoscopy 07/11/2022 Falls Risk Assessment 07/11/2022 Hepatitis C Screening 07/11/2022 Osteoporosis Screening (Bone Density Screening) 07/11/2022 Social Influencers of Health Screening 07/11/2022 COVID-19 Vaccine ( season) 2024 Depression Screening 08/13/2024 Influenza Vaccine (#1) 2025 RSV Immunization Adult Patients (1 - [...] Procedure Name Priority Date/Time Associated Diagnosis Comments [facility] SCREENING DIGITAL Routine 06/10/2024 11:44 AM EDT Encounter for screening mammogram for malignant neoplasm of breast from Last 3 Months or Most Recently Relevant to Health Maintenance Results * [facility] SCREENING [facility]IGITAL (06/10/2024 11:44 AM EDT) Anatomical Region Laterality Modality Mammography 06/10/2024 10:4 7 AM EDT Narrative 06/10/2024 11:[address] [facility] Diagnostic Imaging Department [address] [place] [address] Patient: MCLAUGHLINSARI /Age/Sex: 1950 - 74 - F Unit#: [id number] [facility] Mnemonic/Ordering Site: [facility] Ordering Physician: BHUPINDER GARCIA MD Allison Screening Digital - 06/10/241121 Report Status:Signed HISTORY: The patient is a 74-year-old female presenting for routine screening mammography. FINDINGS: Full-field digital mammography of the breasts bilaterally consisting of tomosynthesis in MLO and CC projection is performed in the [employer] 2000-D unit. Computer aided detection utilizing the iCAD system was utilized. The breasts are again seen to be largely fatty-replaced (the breasts are almost entirely fatty, category A density as calculated with [employer] Volpara software), as also seen on prior studies most recently 09/23/2021 and most remotely 06/14/2016. A few benign calcifications are again seen in the left breast, stable in appearance. There is no suspicious cluster of microcalcifications, mass, or area of architectural distortion. There is no skin thickening or nipple retraction. IMPRESSION: No mammographic evidence of malignancy. A negative mammogram in the presence of a clinically suspicious palpable abnormality does not preclude the possibility of malignancy or alter the indications for biopsy. BIRADS Code Class 2: Benign Finding PQRI CPT II 3342F Code 68868, 94684 PQRI 225 CPT II 7025F Dictating Physician: JOE DONOHUE MD Electronically Signed by: JOE DONOHUE MD Dic Date/Time: 06/10/24 1140 Sign date/Time: 06/10/24 1144 Procedure Note Joe Donohue MD - 06/14/2024 [facility] Diagnostic Imaging Department [address] [place], [place] [id number] Patient: MCLAUGHLINSARI /Age/Sex: 1950 - 74 - F Unit#: [id number] Location/Status: [facility] CLI Mnemonic/Ordering Site: [facility] Ordering Physician: BHUPINDER GARCIA MD Allison Screening Digital - 06/10/24 - 1122 Report Status:Signed HISTORY: The patient is a 74-year-old female presenting for routinescreening mammography. FINDINGS: Full-field digital mammography of the breasts bilaterallyconsisting of tomosynthesis in MLO and CC projection is performed in the [employer] 2000-D unit. Computer aided detection utilizing the [...] Benign Finding PQRI CPT II 3342F Code 14440, 95788 PQRI 225 CPT II 7025F Dictating Physician: JOE DONOHUE MD Electronically Signed by: JOE DONOHUE MD Dic Date/Time: 06/10/24 1140 Sign date/Time: 06/10/24 1144 Bhupinder Garcia MD IMG BI PROCEDURES Final Resul t from Last 3 Months or Most Recently Relevant to Health Maintenance
--- OUTSIDE RECORDS SUMMARY | 2025-03-05 12:26 | XMS_ITS | Patient Health Record ---
Author Organization [facility] Address [address] [place] [id number] Care Team Providers Care Filter Press Supervisor Name Role Phone Jackeline Willoughby M.D. Primary Care Provider Unavail Barrie Leonardo Unavailable [phone] Allergies Allergen (clinical drug ingredient) Drug/Non Drug Allergy documented on EMR Reaction Allergy Type Onset Date Status Penicillin Unknown Drug Allergy Active morphine Morphine Unknown Drug Allergy Active Reason For Referral No Information Medications Medication SIG (Take, Route, Frequency, Duration) Notes Start Date End Date Status Psyllium 33 % as directed Orally Active Vitamin E 100 UNIT as directed Orally Active Vitamin C & D3/Debo Hips Active Multi Vitamin - 1 tablet Orally Once a day Active Synthroid 88 MCG 1 tablet in the morn ing on an empty stomach Orally Once a day for 30 day(s) 03/05/2025 Active Immunizations Vaccine Route Administration Date Status Comme nts Influenza Unknown 03/05/2025 Refused Social History Tobacco Use: Social History Observation Description Date Details (start date - stop date) Current Smoker NA - NA Tobacco Control (Standard) Question Answer Notes Tobacco use: Current smoker AUDIT-C (Standard) Question Answer Notes Did you have a drink containing alcohol in the p ast year? No Points 0 Interpretation Negative Section Notes: Smoker; no sig. alcohol Problems Problem Type SNOMED Code ICD Code Onset Dates Problem Status W/U Status Risk Notes Problem Anemia (700609535) Anemia (D64.9) Active confirmed Problem Abnormal feces (519086443) Positive colorectal cancer screening using Cologuard test (R19.5) Active confirmed Vital Signs Temperature 2 degrees Fahrenheit 03/05/2025 Blood pressure diastolic 01 mm Hg 03/05/2025 Height 66 in 03/05/2025 Blood pressure systolic 001 mm Hg 03/05/2025 Weight 221.6 lbs 03/05/2025 BMI 35.76 kg/m2 03/05/2025 Procedures Procedure Date Ordered Date Performed Result Body Sit e COLONOSCOPY 03/05/2025 N/A Encounters Encounter Location Date Provider Diagnosis [facility] [address] [place] [address] 03/05/2025 Barrie Maguire Positive colorectal cancer screening using Cologuard test R19.5 and Anemia D64.9 Assessments Encounter Date Diagnosis (ICD Code) Assessment Notes Treatment Notes Treatment Clinical Notes Section Notes 03/05/2025 Anemia (ICD-10 - D64.9) Overall, Sari appears well and is not having any particular new or worrisome GI complaints. However, we did review the significance of a positive Cologuard test and the need for colonoscopy to rule out any significant polyps or even colon cancer. She is not having any worrisome symptoms but she does have some evidence of anemia. I advised her that would be important to further assess things with a colonoscopy. Full consent has been obtained from her for this, including risks of bleeding and perforation. We did review the rationale for this in regard to colorectal cancer prevention and/or early detection. Full consent has been taken for this, including risks of bleeding and perforation. In the meantime I shall check laboratories for a follow-up CBC, iron profile, and B12 and folate levels. Of note, Sari was somewhat leery about having the procedure done due to the fact that she will have to find someone to take care of her son who lives with her. However, I did stress the importance of undergoing the procedure and doing the lab work. Thank you again for allowing me to participate in Sari's care. I shall continue to keep you advised of her progress. 03/05/2025 Positive colorectal cancer screening using Cologuard test (ICD-10 - R19.5) Overall, Sari appears well and is not having any particular new or worrisome GI complaints. However, we did review the significance of a positive Cologuard test and the need for colonoscopy to rule out any significant polyps or even colon cancer. She is not having any worrisome symptoms but she does have some evidence of anemia. I advised her that would be important to further assess things with a colonoscopy. Full consent has been obtained from her for this, including risks of bleeding and perforation. We did review the rationale for this in regard to colorectal cancer prevention and/or early detection. Full consent has been taken for this, including risks of bleeding and perforation. In the meantime I shall check laboratories for a follow-up CBC, iron profile, and B12 and folate levels. Of note, Sari was somewhat leery about having the procedure done due to the fact that she will have to find someone to take care of her son who lives with her. However, I did stress the importance of undergoing the procedure and doing the lab work. Thank you again for allowing me to participate in Sari's care. I shall continue to keep you advised of her progress. Plan Of Treatment Pending Test Test Name Order Date COLONOSCOPY 03/05/2025 IRON + IBC (FE) 03/05/2025 CBC w DIFF 03/05/2025 Ferritin 03/05/2025 Vitamin B12 and Folate 03/05/2025 Next Appt Details Provider Name:Barrie Maguire , 06/15/2025 11:30:00 AM, [address] [place] [address] , [place], [place], [id number], Insurance Providers Payer Name Payer Address Payer Phone Subscriber Number Group Number Insured Name Patient Relationship to Insured Coverage Start Date Coverage End Date MEDICARE OF [place] [address] [place], [place] [id number] WILLY SARI Self - patient is the insured 6 [facility] [employer] [address] [place] [address] [phone] [id number] WILYL SARI Self - patient is the insured Medical (General) History Medical History History ICD Code Hypothyroidism Denies SD,DM,CVA,Lung disease,renal dise ase 3 or [address] Lacho fernandez recent one was in approx 2019 Kidney stones Surgical History Surgery Date(Month/Year) ROSELYN CARRILLO
[2025-03-05 13:17] LABS: MANUAL DIFF FLAG NO
[2025-03-05 13:28] LABS: Hematocrit 36.2 % (37.0-47.0); Hemoglobin 11.1 g/dl (12.0-16.0); Imm Gran Abs Auto 0.01 X10*3/uL (0.00-0.03); Imm Gran Pct Auto 0.1 % (0.0-0.4); Lymphocytes Absolute Auto 2.1 X10*3/uL (1.2-4.9); Mean Corpuscular HGB Conc 30.7 g/dl (31.0-35.0); Mean Corpuscular Hemoglobin 24.3 pg (27.0-33.0); Mean Corpuscular Volume 79.4 fL (80.0-98.0); NRBC Abs Auto 0.000 X10*3/uL (0.0-0.012); NRBC Pct Auto 0.0 /100WBC (0.0-0.2); Platelet Count 299 X10*3/uL (160-400); Red Blood Count 4.56 X10*6/uL (4.20-5.50); White Blood Count 6.7 X10*3/uL (4.8-10.8)
[2025-03-05 13:45] LABS: Iron 25 mcg/dL (30-160); Percent Iron Saturation 7 % (15-50); Total Iron Binding Capacity 363 mcg/dL (228-428); Unsaturated Iron Binding 338 ug/dL
[2025-03-05 14:07] LABS: Ferritin 10 ng/mL (10-250)
[2025-03-05 14:11] LABS: Folate 11.2 ng/mL (> or = 4.0); Vitamin B12 328 pg/mL (200-900)
== END 2025-03-05 11:33 | disposition home or self-care (01) ==
LOC: HO.10HDL 11:32
PROVIDERS: Visit Provider Internal Medicine
DX: D64.9 Anemia, unspecified (principal)
CPT/HCPCS: 36415; 82607; 82728; 82746; 83540; 85025

== ENCOUNTER 2025-06-12 13:04 | Outpatient (AMB) | payer MEDICARE, OTHER, SELFPAY ==
--- NOTE | 2025-06-12 13:31 | A.OFFPC_ITS ---
Vital Signs 06/12/25 13:36 Height 5 ft 4 in Weight 222 lb BMI 38.1 BP 122/68 Blood Pressure Location Rt brachial Position Sitting Respiration 14 Pulse 77 Pulse Source Pulse Oximeter Temp 98 F Temp Source Oral Pulse Oximetry (%) 96 Oxygen Delivery Method Room Air Intake Visit Reasons: Follow-up/DEBI from [address] [place] [address] dr. Chapa Note: New patient visit Ship Manager Required: No Allergies Penicillins (PENICILLINS) Allergy (Severe, Verified 11/27/24 10:12) RASH Iodinated Contrast Media (IV Dye, Iodine Containing) Allergy (Intermediate, Verified 11/27/24 10:12) FLUSHING morphine (MORPHINE) Allergy (Intermediate, Verified 11/27/24 10:12) SHAKING, shaking, aggitation penicillin V Allergy (Unknown, Verified 11/27/24 10:12) rash Tobacco use date assessed: 06/12/25 Fall risk assessment: No Falls in past year Last assessed Fall Risk: 06/12/25 Dental Screening Dental Screen Date: 11/27/24 HPI HPI Comments History of Present Illness Details This 75-year-old white female with a past medical history of hypothyroid, hyperlipidemia, COPD, tobacco use presenting for follow up. Hyperlipidemia: Difficulty losing weight despite months of diet and exercise. Hypothyroid: On anrsdgbfmenru-P-O 88mcg, Sa-Sun 100mcg. Intolerant of generic. History of thyroid surgery and pharmacologic ablation LDCT: Dr Dye. Current cough, sinus congestion Colonoscopy: recently saw [facility] for positive cologuard (test date 11/2024). She declined going through with colonoscopy at present. Regular daily Mammo: UTD. Follows with remotely operated vehicle Dr Noemí MCINTOSH see HPI PHYSICAL EXAM: GENERAL: Alert and oriented x 3. NAD EYES: EOMI. Anicteric. HENT: Moist mucous membranes. No scleral icterus. No cervical lymphadenopathy. LUNGS: Clear to auscultation bilaterally. CARDIOVASCULAR: Regular rate and rhythm. No murmur. No JVD. ABDOMEN: Soft, non-tender +bs EXTREMITIES: No edema. Non-tender. SKIN: No rashes or lesions. Warm. NEUROLOGIC: No focal neurological deficits. CN II-XII grossly intact PSYCHIATRIC: Cooperative. Appropriate mood and affect [facility] Medical History Hypothyroid Obesity Nicotine dependence, cigarettes, uncomplicated Surgical History History of colonoscopy (~04/06/15) History of cholecystectomy (~1991) History of appendectomy (~1997) History of hysterectomy (~1997) Family History Mother No problems noted. Father No problems noted. Social History Housing: House Patient Tobacco Use Status: Former Tobacco user e-Cigarette/Vaping Use: Former Use service: No Current occupational status: retired Current occupation: rt hand/ Cognitive needs: No Hearing needs: No Vision needs: Yes (reading) Questionnaire PHQ-9 Over the last 2 weeks, how often have you been bothered by any of the following problems? 1. Little interest or pleasure in doing things: not at all 2. Feeling down, depressed, or hopeless: not at all 3. Trouble falling or staying asleep, or sleeping too much: not at all 4. Feeling tired or having little energy: not at all 5. Poor appetite or overeating: not at all 6. Feeling bad about yourself - or that you are a failure or have let yourself or your family down: not at all 7. Trouble concentrating on things, such as reading the newspaper or watching television: not at all 8. Moving or speaking so slowly that other people could have noticed. Or the opposite - being so fidgety or restless that you have been moving around a lot more than usual: not at all 9. Thoughts that you would be better off or of hurting yourself in some way: not at all Total score: 0 Depression Screening Interpretation: Negative Depression Screening Done: Yes 07094 - PHQ-9 Billing: Yes Source: Developed by Drs. Barrie Lazar, Kaitlin Villela, Emre Espinosa and colleagues, with an educational paulino from [employer]. Thrive Questionnaire Date Thrive assessed: 11/27/24 I am a: Patient What is your living situation today?: I have a steady place to live Within the past 12 months, did the food you bought not last and you didn't have the money to get more?: Never true Within the past 12 months, did you worry whether your food would run out before you got money to buy more?: Never true Do you have trouble paying for medicines?: No Do you have trouble getting transportation to medical appointments?: No Do you have trouble paying your heating and electricity bill?: No Do you have trouble taking care of your child, family member or friend?: No Do you have trouble with day-to-day activities such as bathing, preparing meals, shopping, managing finances, etc.?: No Are you currently unemployed and looking for a job?: No Are you interested in more education?: No Please select the resources that you would like help with: None Currently or been in a relationship where the following occur: No concerns reported THRIVE Score: 0 AUDIT C Alcohol Use Questionnaire (AUDIT-C) 1. How often do you have a drink containing alcohol?: Never 3. How often do you have six or more drinks on one occasion?: Never Total Score: 0 RADHA-7 AMB Questionnaire RADHA-7 Date RADHA - 7 assessed: 11/27/24 Feeling nervous, anxious, or on edge: 0 = Not at all Not being able to stop or control worryin = Not at all Worrying too much about different things: 0 = Not at all Trouble relaxin = Not at all Being so restless that it is hard to sit still: 0 = Not at all Becoming easily annoyed or irritable: 0 = Not at all Feeling afraid as if something awful might happen: 0 = Not at all Total RADHA-7 score (0-4 normal; 5-9 mild; 10-14 moderate; 15-21 severe): 0 Source: Developed by Drs. Barrie Lazar, Kaitlin Villela, Emre Espinosa and colleagues, with an educational paulino from [employer]. Physical exam (Primary Care) Vital Signs: Last Vital Signs Temp 98 F 06/12/25 13:36 Pulse 77 06/12/25 13:36 Resp 14 06/12/25 13:36 BP 122/68 06/12/25 13:36 Pulse Ox 96 06/12/25 13:36 Oxygen Delivery Method Room Air 06/12/25 13:36 BMI result Body Mass Index 38.1 Tobacco/Smoking Status: Tobacco use Status Tobacco use date assessed 06/12/25 06/12/25 13:39 Patient Tobacco Use Status Former Tobacco user 06/12/25 13:33 e-Cigarette/Vaping Use Former Use 06/12/25 13:33 PHQ-9: PHQ-9 Score PHQ-9: Total score 0 06/12/25 13:43 Depression Screening Interpretation: Negative Thrive Assessment: Date of Thrive Assessment Date Thrive assessed 11/27/24 06/12/25 13:33 Currently or been in a relationship where the following occur: No concerns reported Coding Level of Care Code Est Pt Level 4 (57448) Complex EM visit Add On G2211 Diagnoses Elevated glucose R73.09 Hyperlipidemia, unspecified hyperlipidemia type E78.5 Hyperlipidemia type: unspecified Hypothyroidism, unspecified type E03.9 Hypothyroidism type: unspecified Lumbar radiculopathy M54.16 Additional Codes PHQ-9 - 49939 - PHQ-9 Billing: Yes ([id number]) Assessment & Plan Assessment & Plan (1) Elevated glucose: Code(s): R73.09 - Other abnormal glucose Category: Medical (2) Hyperlipidemia: Code(s): E78.5 - Hyperlipidemia, unspecified Category: Medical Qualifiers: Hyperlipidemia type: unspecified Qualified Code(s): E78.5 - Hyperlipidemia, unspecified (3) Hypothyroid: Code(s): E03.9 - Hypothyroidism, unspecified Category: Medical Qualifiers: Hypothyroidism type: unspecified Qualified Code(s): E03.9 - Hypothyroidism, unspecified (4) Lumbar radiculopathy: Code(s): M54.16 - Radiculopathy, lumbar region Category: Medical Plan 75 year old female for follow up Hypothyroid -continue synthroid Obesity, HLD-zebpound ordered. If not covered trial phentermine Orders: Orders TSH reflex Free T4 06/12/25 E03.9 - Hypothyroidism, unspecified, E66.01 - Morbid (severe) obesity due to excess calories, E66.812 - Obesity, class 2, M54.16 - Radiculopathy, lumbar region, R73.09 - Other abnormal glucose, Z68.38 - Body mass index [BMI] 38.0-38.9, adult LDL Cholesterol Direct 06/12/25 E03.9 - Hypothyroidism, unspecified, E66.01 - Morbid (severe) obesity due to excess calories, E66.812 - Obesity, class 2, M54.16 - Radiculopathy, lumbar region, R73.09 - Other abnormal glucose, Z68.38 - Body mass index [BMI] 38.0-38.9, adult Hemoglobin A1c 06/12/25 E03.9 - Hypothyroidism, unspecified, E66.01 - Morbid (severe) obesity due to excess calories, E66.812 - Obesity, class 2, M54.16 - Radiculopathy, lumbar region, R73.09 - Other abnormal glucose, Z68.38 - Body mass index [BMI] 38.0-38.9, adult Complete Blood Count Auto Diff 06/12/25 E03.9 - Hypothyroidism, unspecified, E66.01 - Morbid (severe) obesity due to excess calories, E66.812 - Obesity, class 2, M54.16 - Radiculopathy, lumbar region, R73.09 - Other abnormal glucose, Z68.38 - Body mass index [BMI] 38.0-38.9, adult IRON PROFILE 06/12/25 E03.9 - Hypothyroidism, unspecified, E66.01 - Morbid (severe) obesity due to excess calories, E66.812 - Obesity, class 2, M54.16 - Radiculopathy, lumbar region, R73.09 - Other abnormal glucose, Z68.38 - Body mass index [BMI] 38.0-38.9, adult Medications: New azithromycin For 250 mg dose pack: take 500 mg today (day 1), then 250 mg for 4 days (days 2-5) PO 6 tabs 0RF Zepbound (tirzepatide (weight loss)) for 4 weeks 2.5 mg (0.5 mL) subcut QWEEK 2 mL 3RF NS E66.01 - Morbid (severe) obesity due to excess calories, E66.812 - Obesity, class 2, E78.5 - Hyperlipidemia, unspecified, Z68.38 - Body mass index [BMI] 38.0-38.9, adult phentermine must administer 30 minutes before or 1-2 hours after breakfast ANJALI [id number] [facility] [id number] Member [id number] 37.5 mg PO DAILY 90 caps 3RF
[2025-06-12 13:36] VITALS: BP 122/68; PULSE 77; RESP 14; TEMP 36.6; O2SAT 96; BMI 38.1
--- OUTSIDE RECORDS SUMMARY | 2025-06-12 14:12 | XMS_ITS | Patient Health Record ---
Author Organization [facility] Address [address] [place] [address] Care Team Providers Care Tree Deadener Name Role Phone Jackeline Willoughby M.D. Primary Care Provider Barrie Chauhan [phone] Allergies Allergen (clinical drug ingredient) Drug/Non Drug Allergy documented on EMR Reaction Allergy Type Onset Date Status Penicillin Unknown Drug Allergy Active morphine Morphine Unknown Drug Allergy Active Results Component Value Reference Range Notes Ferritin Reviewed date:03/08/2025 07:50:03 PM Interpretation: Performing Lab:[facility], [address] [place] [phone] Notes/Report: Ferritin 10 10-250 ng/mL Vitamin B12 and Folate Reviewed date:03/05/2025 04:21:32 PM Interpretation: Performing Lab:[facility], [address] [place] [phone] Notes/Report: Vitamin B12 328 200-900 pg/mL NORMAL 200-900 PG/ML INDETERMINATE 160-199 PG/ML DEFICIENT < 160 PG/ML Folate 11.2 > or = 4.0 ng/mL Reference Values: > or = 4.0 ng/mL < 4.0 ng/mL suggests folate deficiency Methotrexate, aminopterin and folinic acid (leucovorin) are chemotherapeutic agents whose molecular structures are similar to folate; therefore, the [employer] folate assay cannot be used for patients using these drugs. Complete Blood Count Auto Di ff Reviewed date:03/08/2025 07:50:32 PM Interpretation: Performing Lab:[facility], [address] [place] [phone] Notes/Report: White Blood Count 6.7 4.8-10.8 X10*3/uL Red Blood Count 4.56 4.20-5.50 X10*6/uL Hemoglobin 11.1 12.0-16.0 g/dl Hematocrit 36.2 37.0-47.0 % Mean Corpuscular Volume 79.4 80.0-98.0 fL Mean Corpuscular Hemoglobin 24.3 27.0-33.0 pg Mean Corpuscular HGB Conc 30.7 31.0-35.0 g/dl Red Cell Distribution Width 16.9 11.0-16.0 % Platelet Count 299 160-400 X10*3/uL Mean Platelet Volume 11.1 9.4-12.3 fL Neutrophils Percent Auto 59.7 45-73 % Imm Gran Pct Auto 0.1 0.0-0.4 % Lymphocytes Percent Auto 31.8 20-40 % Monocytes Percent Auto 6.5 2-11 % Eosinophils Percent Auto 1.5 0-4 % Basophils Percent Auto 0.4 0-2 % NRBC Pct Auto 0.0 0.0-0.2 /100WBC Neutrophils Absolute Auto 4.0 2.0-8.3 x10*3/u L Imm Gran Abs Auto 0.01 0.00-0.03 X10*3/uL Lymphocytes Absolute Auto 2.1 1.2-4.9 X10*3/u L Monocytes Absolute Auto 0.4 0.1-1.2 X10*3/uL Eosinophils Absolute Auto 0.1 0.0-0.4 X10*3/u L Basophils Absolute Auto 0.0 0.0-0.2 X10*3/uL NRBC Abs Auto 0.000 0.0-0.012 X10*3/uL IRON PROFILE Reviewed date:06/04/2025 12:28:17 AM Interpretation: Performing Lab:[facility], [address] [place] [phone] Notes/Report: Iron 25 30-160 mcg/dL Total Iron Binding Capacity 363 228-428 mcg/d L Percent Iron Saturation 7 15-50 % Unsaturated Iron Binding 338 Reason For Referral No Information Medications Medication [...] on an empty stomach Orally Once a day; Duration: 30 day(s) 03/05/2025 Active Immunizations Vaccine Route [...] Status W/U Status Risk Notes Problem Anemia (893882803) Anemia (D64.9) Active confirmed Problem Abnormal feces (754588394) Positive colorectal cancer screening using Cologuard test (R19.5) Active confirmed Vital Signs Temperature 2 degrees Fahrenheit 03/05/2025 Blood pressure diastolic 01 mm Hg 03/05/2025 Height 66 in 03/05/2025 Blood pressure systolic 001 mm Hg 03/05/2025 Weight 221.6 lbs 03/05/2025 BMI 35.76 kg/m2 03/05/2025 Procedures Procedure Date Ordered Date Performed Result Body Sit e UPPER GI ENDOSCOPY 03/05/2025 N/A COLONOSCOPY 03/05/2025 N/A Encounters Encounter Location Date Provider Diagnosis [facility] [address] [place] [phone] 03/05/2025 Barrie Maguire Positive colorectal cancer screening using Cologuard test R19.5 and Anemia D64.9 [facility] [address] [place] [phone] 03/12/2025 Barrie Maguire [facility] [address] [place] [phone] 06/11/2025 Barrie Maguire Assessments Encounter Date Diagnosis (ICD Code) Assessment [...] to further assess things with a colonoscopy. I would also recommend an upper endoscopy on the same day in regard to the anemia. Full consent has been obtained from her for both procedures, including risks of bleeding and perforation. We did review the rationale for this in regard to colorectal cancer prevention and/or early detection.The procedures will be done with monitored anesthesia care. In the meantime I shall check laboratories for a follow-up CBC, iron profile, and B12 and folate levels. Of note, Sari was somewhat leery about having the procedures done due to the fact that she will have to find someone to take care of her son who lives with her. However, I did stress the importance of undergoing the procedures and doing the lab work. Thank you [...] to further assess things with a colonoscopy. I would also recommend an upper endoscopy on the same day in regard to the anemia. Full consent has been obtained from her for both procedures, including risks of bleeding and perforation. We did review the rationale for this in regard to colorectal cancer prevention and/or early detection.The procedures will be done with monitored anesthesia care. In the meantime I shall check laboratories for a follow-up CBC, iron profile, and B12 and folate levels. Of note, Sari was somewhat leery about having the procedures done due to the fact that she will have to find someone to take care of her son who lives with her. However, I did stress the importance of undergoing the procedures and doing the lab work. Thank you again for allowing me to participate in Sari's care. I shall continue to keep you advised of her progress. Plan Of Treatment Pending Test Test Name Order Date UPPER GI ENDOSCOPY 03/05/2025 COLONOSCOPY 03/05/2025 IRON + IBC (FE) 03/05/2025 CBC w DIFF 03/05/2025 Insurance Providers Payer Name Payer Address Payer Phone Subscriber Number Group Number Insured Name Patient Relationship to Insured Coverage Start Date Coverage End Date [employer] [address] [place] [id number] SARI AGUILERA Self - patient is the insured [address] [place] [address] [id number] SARI AGUILERA Self - patient is the insured Medical (General) History Medical History History ICD Code Hypothyroidism Denies AL,DM,CVA,Lung disease,renal dise ase 3 or [address] Lacho oates ost recent one was in approx 2019 Kidney stones Surgical History Surgery Date(Month/Year) ROSELYN CARRILLO
== END 2025-06-12 14:24 | disposition home or self-care (01) ==
LOC: HO.HMCFM 13:05
PROVIDERS: PCP Internal Medicine; Visit Provider Internal Medicine
DX: R73.09 Other abnormal glucose (principal); E78.5 Hyperlipidemia, unspecified; E03.9 Hypothyroidism, unspecified; M54.16 Radiculopathy, lumbar region

== ENCOUNTER 2025-06-12 13:04 | Outpatient (REF) | payer MEDICARE, OTHER, SELFPAY ==
[2025-06-12 18:04] LABS: MANUAL DIFF FLAG NO
[2025-06-12 18:19] LABS: Hematocrit 33.1 % (37.0-47.0); Hemoglobin 9.9 g/dl (12.0-16.0); Imm Gran Abs Auto 0.03 X10*3/uL (0.00-0.03); Imm Gran Pct Auto 0.5 % (0.0-0.4); Lymphocytes Absolute Auto 1.9 X10*3/uL (1.2-4.9); Mean Corpuscular HGB Conc 29.9 g/dl (31.0-35.0); Mean Corpuscular Hemoglobin 23.8 pg (27.0-33.0); Mean Corpuscular Volume 79.6 fL (80.0-98.0); NRBC Abs Auto 0.000 X10*3/uL (0.0-0.012); NRBC Pct Auto 0.0 /100WBC (0.0-0.2); Platelet Count 325 X10*3/uL (160-400); Red Blood Count 4.16 X10*6/uL (4.20-5.50); White Blood Count 6.6 X10*3/uL (4.8-10.8)
[2025-06-12 18:38] LABS: Iron 32 mcg/dL (30-160); Percent Iron Saturation 9 % (15-50); Total Iron Binding Capacity 369 mcg/dL (228-428); Unsaturated Iron Binding 337 ug/dL
[2025-06-12 19:23] LABS: Free T4 (Free Thyroxine) 1.04 ng/dL (0.71-1.85)
== END 2025-06-12 13:05 | disposition home or self-care (01) ==
LOC: HO.WFDLDS 13:04
PROVIDERS: PCP Internal Medicine; Visit Provider Internal Medicine
DX: M54.16 Radiculopathy, lumbar region (principal); E03.9 Hypothyroidism, unspecified; E66.812 Obesity, class 2; E66.01 Morbid (severe) obesity due to excess calories; R73.09 Other abnormal glucose; E78.5 Hyperlipidemia, unspecified; Z68.38 Body mass index [BMI] 38.0-38.9, adult
CPT/HCPCS: 36415; 83036; 83540; 83721; 84439; 84443; 85025; 96127; 99212